=== PATIENT | female | born 1980 | race Caucasian/White ===

== ENCOUNTER 2023-03-13 14:46 | Emergency (ER) | payer OTHER ==
[2023-03-13 15:14] VITALS: BP 102/62; PULSE 85; RESP 18; TEMP 98.3; BMI 27.8
[2023-03-13] MEDS ORDERED: ACETAMINOPHEN 500 MG TABLET (FP) PO ONE (16:20)
[2023-03-13] MEDS ORDERED: ACETAMINOPHEN 500 MG TABLET (FP) ONE (17:16)
[2023-03-13 18:46] LABS: THROAT:GRP A STREP NOT DETECTED (NOTDETECTED)
== END 2023-03-13 17:42 | disposition home or self-care (01) ==
LOC: JERFT 14:46
DX: R05.9 Cough, unspecified (principal); R50.9 Fever, unspecified; R07.0 Pain in throat; M79.10 Myalgia, unspecified site; R53.1 Weakness; R53.83 Other fatigue; J06.9 Acute upper respiratory infection, unspecified; B97.89 Other viral agents as the cause of diseases classified elsewhere; Z20.822 Contact with and (suspected) exposure to COVID-19
CPT/HCPCS: 0241U-QW; 71046-TC-FY; 87651; 99284-25